=== PATIENT | female | born 1985 | race Caucasian/White ===

== ENCOUNTER 2017-04-11 09:53 | Day surgery (SDC) | payer BC ==
[2017-04-11] MEDS ORDERED: PROPOFOL INJ 200 MG/20 ML VIAL IV ONE (12:16)
[2017-04-11] MEDS ORDERED: MIDAZOLAM 2 MG/2 ML INJ ONE (12:16)
[2017-04-11] MEDS ORDERED: FENTANYL CITRATE INJ/PF 100 MCG/2 ML AMPUL IV PRN ×3 (12:51)
[2017-04-11] MEDS ORDERED: DIPHENHYDRAMINE HCL 50 MG/ML VIAL IV PRN (12:51)
[2017-04-11] MEDS ORDERED: MORPHINE SULFATE 10 MG/ML INJ IV PRN (12:51)
[2017-04-11 15:02] VITALS: BP 121/79
--- NOTE | 2017-04-11 16:39 | Operative Report ---
Operative Report DATE OF SURGERY: 04/11/17 Operative Report: The risks, benefits and alternatives of the procedure including risks of bleeding, perforation requiring surgery are explained to the patient in detail and informed consent was obtained. Patient was taken to the operating room and placed in the left, lateral decubital position. Timeout was called. Propofol medications administered. A rectal examination is done which did not reveal any masses, tears or fissures. An Olympus videoscope was inserted into the patient's rectum it is carefully advanced all the way to the cecum the cecum is identified by the usual anatomical landmarks including the ileocecal valve as well as the appendiceal office. Photodocumentation is obtained. The scope was then sequentially pulled back via the various segments of the colon including the ascending colon, hepatic flexure, transverse colon, splenic flexure, descending colon finding to the rectosigmoid portions of the colon. Retroflexion maneuvers performed. PREOPERATIVE DIAGNOSIS: Follow-up Crohn's disease POSTOPERATIVE DIAGNOSIS: Normal-appearing colon. Mild terminal ileitis status post biopsy. Internal hemorrhoids OPERATION: Colonoscopy with biopsy SURGEON: PRATIMA KING ANESTHESIA: LMAC TISSUE REMOVED OR ALTERED: As noted above. COMPLICATIONS: None. ESTIMATED BLOOD LOSS: None. INTRAOPERATIVE FINDINGS: As described above. PROCEDURE: Patient tolerated procedure well. No immediate postprocedure complications are noted. Patient discharged in good condition. Discharge date 04/11/2017. Discharge diet: Regular. Discharge activity: Regular. Patient is instructed to call the office or proceed to the emergency room should there be any further problems or questions. We will wait on pathology. 2-3 week follow-up to discuss findings. Continue current medications.
== END 2017-04-11 14:45 | disposition home or self-care (01) ==
LOC: OROUT 09:53
PROVIDERS: ATTEND Internal Medicine Gastroenterology
PROC: 0DBB8ZX Excision of Ileum, Via Natural or Artificial Opening Endoscopic, Diagnostic (ICD-10-PCS; principal; 2017-04-11 12:00)
DX: K52.9 Noninfective gastroenteritis and colitis, unspecified (principal); K62.89 Other specified diseases of anus and rectum; K50.10 Crohn's disease of large intestine without complications; I49.9 Cardiac arrhythmia, unspecified; Z88.8 Allergy status to other drugs, medicaments and biological substances; Z79.899 Other long term (current) drug therapy
CPT/HCPCS: 45380; J2704; 810; J2250

== ENCOUNTER 2018-01-18 14:59 | Emergency (ER) | payer BC ==
--- NOTE | 2018-01-18 15:09 | ER Document Report ---
ED Extremity Problem, Lower - General Chief Complaint: Toe Injury Stated Complaint: POSSIBLE TOE INJURY Time Seen by Provider: 01/18/18 15:09 Mode of Arrival: Wheelchair Information source: Patient Notes: Patient was in a furniture store with her looking at a furniture when the furniture slid down and hit on the left second toe this afternoon. The left second toe is deformed and painful. TRAVEL OUTSIDE OF THE [place] IN LAST 30 DAYS: No - HPI Patient complains to provider of: Pain Location: 2nd Toe Occurred: Just prior to arrival Where: Public place Onset/Duration: Sudden Quality of pain: Sharp Severity: Moderate Pain Level: 3 Context: Direct blow Associated symptoms: denies: Chest pain, Short of breath Exacerbated by: Movement Relieved by: Nothing - Related Data Allergies/Adverse Reactions: promethazine HCl [From Phenergan] Adverse Reaction (Severe, Verified 01/18/18 15 :01) Blurred vision Past Medical History - Social History Smoking Status: Unknown if Ever Smoked Family History: Reviewed & Not Pertinent - Past Medical History Cardiac Medical History: Denies: Hx Coronary Artery Disease, Hx Heart Attack, Hx Hypertension Pulmonary Medical History: Denies: Hx Asthma, Hx Bronchitis, Hx COPD, Hx Pneumonia Neurological Medical History: Denies: Hx Cerebrovascular Accident, Hx Seizures Musculoskeletal Medical History: Denies Hx Arthritis Skin Medical History: Reports Hx Psoriasis Past Surgical History: Reports: Hx Cholecystectomy, Hx Tonsillectomy. Denies: Hx Hysterectomy - Immunizations Immunizations up to date: Yes Hx Diphtheria, Pertussis, Tetanus Vaccination: Yes Hx Pneumococcal Vaccination: 05/13/09 Review of Systems - Review of Systems Constitutional: denies: Chills, Fever EENT: denies: Eye pain, Nose pain Cardiovascular: denies: Chest pain, Palpitations, Dizziness Respiratory: denies: Cough, Short of breath Gastrointestinal: denies: Abdominal pain, Diarrhea, Nausea, Vomiting Genitourinary: No symptoms reported Female Genitourinary: No symptoms reported Musculoskeletal: Other - Left second toe deformity with pain.. denies: Back pain, Muscle pain Skin: denies: No symptoms reported, Change in color, Change in hair/nails, Dryness Hematologic/Lymphatic: No symptoms reported Neurological/Psychological: No symptoms reported -: Yes All other systems reviewed and negative Physical Exam - Vital signs Vitals: Temp Pulse Resp BP Pulse Ox 98.9 F 113 H 22 H 136/91 H 99 01/18/18 15:05 01/18/18 15:05 01/18/18 15:05 01/18/18 15:05 01/18/18 15:05 - General General appearance: Appears well, Alert, Anxious In distress: Moderate - HEENT Head: Normocephalic, Atraumatic Eyes: Normal Pupils: PERRL - Respiratory Respiratory status: No respiratory distress Chest status: Nontender Breath sounds: Normal Chest palpation: Normal - Cardiovascular Rhythm: Regular Heart sounds: Normal auscultation Murmur: No - Abdominal Inspection: Normal Distension: No distension Bowel sounds: Normal Tenderness: Nontender Organomegaly: No organomegaly - Back Back: Normal, Nontender - Extremities General upper extremity: Normal inspection Shoulder: Normal Arm: Normal Elbow: Normal Forearm: Normal Wrist: Normal Hand: Normal Hip: Normal Thigh: Normal Knee: Normal Calf: Normal Ankle: Normal Foot: Tender, Deformity - Left second toe is deformed and angulated with tenderness to palpation. - Neurological Neuro grossly intact: Yes Cognition: Normal Orientation: AAOx4 Miguel[place] Coma Scale Eye Opening: Spontaneous [place] Coma Scale Verbal: Oriented [place] Coma Scale Motor: Obeys Commands Miguelina Coma Scale Total: 15 Speech: Normal Motor strength normal: LUE, RUE, LLE, RLE Sensory: Normal - Psychological Associated symptoms: Anxious - Skin Skin Temperature: Warm Skin Moisture: Dry Skin Color: Normal Course - Vital Signs Vital signs: Temp Pulse Resp BP Pulse Ox 98.9 F 81 18 119/82 98 01/18/18 15:05 01/18/18 17:18 01/18/18 17:18 01/18/18 17:18 01/18/18 17:18 - Transfer of Care Notes: 01/18/18 15:28 Left second toe dislocation. Procedures - Joint Reduction/Fracture Care Left Toe 2nd digit Time completed: 16:05 Consent obtained: Yes - Verbal Conscious sedation: No Pre-procedure NV exam: Yes Fracture: Other - No fracture Manipulation comment: Toe relocated in place after digital block with Lidocaine 1% without Epinep Post-procedure NV exam: Yes Reduction attempts: 1 Complications: No Discharge - Discharge Clinical Impression: Dislocation of second toe, left, closed Qualifiers: Encounter type: initial encounter Qualified Code(s): S93.105A - Unspecified dislocation of left toe(s), initial encounter Fracture dislocation of joint of toe of left foot Qualifiers: Encounter type: initial encounter Fracture type: closed Qualified Code(s): S92.912A - Unspecified fracture of left toe(s), initial encounter for closed fracture Condition: Stable Disposition: HOME, SELF-CARE Instructions: Dislocation ([facility]) Additional Instructions: Please follow up with the Orthopedic Surgeon Dr Igor Pineda on Saturday. Return to the ED if your condition worsens. Prescriptions: Ibuprofen [Motrin 800 mg Tablet] 800 mg PO Q8H PRN #20 tab PRN Reason: Pain Scale Of 4 Forms: Return to Work Referrals: EMBER MONSIVAIS MD [NO LOCAL MD] - Follow up as needed IGOR PINEDA MD [ACTIVE STAFF] - Follow up as needed
[2018-01-18] MEDS ORDERED: ONDANSETRON HCL INJ/PF 4 MG/2 ML SDV IV ONE (15:13)
[2018-01-18] MEDS ORDERED: MORPHINE SULFATE 10 MG/ML INJ IV ONE (15:13)
--- NOTE | 2018-01-18 15:57 | RADIOLOGY REPORT (SQ) ---
EXAM DESCRIPTION: FOOT LEFT COMPLETE COMPLETED DATE/TIME: 01/18/2018 3:47 pm REASON FOR STUDY: second toe injury COMPARISON: None. NUMBER OF VIEWS: Three views. TECHNIQUE: AP, lateral and oblique radiographic images acquired of the left foot. LIMITATIONS: None. FINDINGS: MINERALIZATION: Normal. BONES: Dislocation of the PIP joint of the 2nd toe with medial displacement. Associated tiny osseous densities probably representing tiny chip fractures. JOINTS: No effusions. SOFT TISSUES: No soft tissue swelling. No foreign body. OTHER: No other significant finding. IMPRESSION: DISLOCATION OF THE PIP JOINT OF THE 2ND TOE. PROBABLE TINY CHIP FRACTURES. TECHNICAL DOCUMENTATION: JOB ID: [id number] [employer]- All Rights Reserved Reading location - IP/workstation name: [email or web address]
[2018-01-18] MEDS ORDERED: LIDOCAINE 1% INJ (10 MG/ML) 10 ML MDV INJ ONE (15:58)
[2018-01-18 17:19] VITALS: BP 119/82
== END 2018-01-18 17:19 | disposition home or self-care (01) ==
LOC: ER 14:59
PROC: 0QSRXZZ Reposition Left Toe Phalanx, External Approach (ICD-10-PCS; principal; 2018-01-18)
DX: S93.105A Unspecified dislocation of left toe(s), initial encounter (principal); S92.912A Unspecified fracture of left toe(s), initial encounter for closed fracture; W22.03XA Walked into furniture, initial encounter; Y92.512 Supermarket, store or market as the place of occurrence of the external cause
CPT/HCPCS: 99283; 96374; 96375; 73630; 28515; J2270; J2405

== ENCOUNTER 2019-03-28 22:04 | Emergency (ER) | payer BC, OTHER ==
[2019-03-28 22:45] LABS: APPEARANCE,URINE CLOUDY; BILIRUBIN,URINE NEGATIVE (NEGATIVE); COLOR,URINE YELLOW; GLUCOSE, URINE NEGATIVE (NEGATIVE); KETONES,URINE NEGATIVE (NEGATIVE); LEUKOCYTE ESTERASE,URINE SMALL (NEGATIVE); NITRITE,URINE NEGATIVE (NEGATIVE); PROTEIN,URINE NEGATIVE (NEGATIVE)
[2019-03-28] MEDS ORDERED: ONDANSETRON HCL INJ/PF 4 MG/2 ML SDV IV ONE (23:17)
[2019-03-28 23:26] LABS: ABSOLUTE BASOPHILS # (AUTO) 0.1 10^3/uL (0.0-0.2); ABSOLUTE EOSINOPHILS # (AUTO) 0.2 10^3/uL (0.0-0.6); ABSOLUTE LYMPHOCYTES (AUTO) 3.7 10^3/uL (0.5-4.7); ABSOLUTE MONOCYTES (AUTO) 0.7 10^3/uL (0.1-1.4); ABSOLUTE NEUT (AUTO) 6.2 10^3/uL (1.7-8.2); BASOPHILS % (AUTO) 0.7 % (0-2); EOSINOPHILS % (AUTO) 1.7 % (0-6); HEMATOCRIT 43.7 % (36.0-47.0); HEMOGLOBIN 14.9 g/dL (12.0-15.5); LYMPHOCYTES % (AUTO) 33.9 % (13-45); MEAN CORPUSCULAR HEMOGLOBIN 31.2 pg (27.0-33.4); MEAN CORPUSCULAR HGB CONC 34.2 g/dL (32.0-36.0); MEAN CORPUSCULAR VOLUME 91 fl (80-97); MONOCYTES % (AUTO) 6.7 % (3-13); PLATELET COUNT 299 10^3/uL (150-450); RED BLOOD COUNT 4.78 10^6/uL (3.72-5.28); RED CELL DISTRIBUTION WIDTH 12.9 % (11.5-14.0); TOTAL CELLS COUNTED % (AUTO) 100 %; WHITE BLOOD COUNT 10.9 10^3/uL (4.0-10.5)
[2019-03-28] MEDS ORDERED: KETOROLAC TROMETHAMINE INJ/PF 30 MG/1 ML SDV IV ONE (23:39)
--- NOTE | 2019-03-29 00:13 | RADIOLOGY REPORT (SQ) ---
EXAM: CT abdomen and pelvis without intravenous contrast CLINICAL DATA: 33-year-old female with right-sided pain, hematuria and history of kidney stones TECHNICAL DATA: Axial CT imaging of the abdomen and pelvis was performed. Sagittal and coronal reconstructed images were then performed. The CT study is performed according to ALARA (as low as reasonably achievable) or ALARA/IMAGE GENTLY, with automatic adjustment of mA and/or kV according to patient size. Performed on: 03/28/2019 at 11:45 PM Comparison: None. FINDINGS: Lung bases: The lung bases are clear. Liver: The liver is enlarged and measures 21 cm in craniocaudal dimension. No focal hepatic abnormalities are appreciated on this unenhanced scan. Liver attenuation is within normal limits. Spleen:The spleen is normal is size, configuration and attenuation. No focal splenic abnormalities are appreciated on this unenhanced scan. Gallbladder and bile duct: The gallbladder is surgically absent. There is no biliary ductal dilatation. Pancreas: The pancreas is grossly normal in size and configuration. Adrenal Glands:The adrenal glands are normal in size and configuration. Kidneys:The kidneys are normal in size and configuration. There is no evidence of hydronephrosis. There is no evidence of nephrolithiasis. No focal renal abnormalities are identified. Stomach:The stomach is grossly normal. There is no definite hiatal hernia. Bowel:The bowel gas pattern is non specific and non obstructive. Appendix: The appendix is normal. Free air:There is no evidence of free air. Free fluid: There is no evidence of free fluid. Vasculature: The aorta is normal in caliber and contour. The inferior vena cava is grossly unremarkable. Lymphadenopathy: No pathologic lymphadenopathy is identified. Bladder: The bladder is well distended and smooth in contour. Reproductive: The uterus is retroflexed. Bones: No acute osseous abnormalities are identified. Soft tissues: No focal soft tissue abnormalities are identified. IMPRESSION: 1. Hepatomegaly. 2. Prior cholecystectomy. 3. No evidence of acute intra-abdominal or intrapelvic pathology. There is no evidence of urinary tract calcification or urinary tract obstruction.
[2019-03-29 00:40] LABS: ALBUMIN 4.4 g/dL (3.5-5.0); ALKALINE PHOSPHATASE 63 U/L (38-126); ANION GAP 11 (5-19); ASPARTATE AMINO TRANSFERASE 22 U/L (14-36); BILIRUBIN,DIRECT 0.2 mg/dL (0.0-0.4); BILIRUBIN,TOTAL 0.4 mg/dL (0.2-1.3); BLOOD UREA NITROGEN 15 mg/dL (7-20); CALCIUM 10.1 mg/dL (8.4-10.2); CARBON DIOXIDE 25 mmol/L (22-30); CHLORIDE 103 mmol/L (98-107); GLUCOSE 116 mg/dL (75-110); POTASSIUM 4.2 mmol/L (3.6-5.0); TOTAL PROTEIN 7.8 g/dL (6.3-8.2)
--- NOTE | 2019-03-29 01:34 | ER Document Report ---
ED GI/ - General Chief Complaint: Abdominal Pain Stated Complaint: ABDOMINAL PAIN,NAUSEA Time Seen by Provider: 03/28/19 22:59 Primary Care Provider: JENNIFER BARBER MD [Primary Care Provider] - Follow up as needed Notes: Patient is a 33-year-old female presents to the emergency department with dull right-sided abdominal pain. States it started around 9:00 last evening. States it started in her right back and then has moved to her right side. States the pain has started she does get nauseated. States she does have a history of kidney stones but is denying any dysuria or vaginal discharge. States she did undergo a colposcopy approximately 10 days ago. Denying any pelvic pain at this time. Patient has a history of a cholecystectomy. TRAVEL OUTSIDE OF THE [place] IN LAST 30 DAYS: No - Related Data Allergies/Adverse Reactions: promethazine HCl [From Phenergan] Adverse Reaction (Severe, Verified 01/18/18 15:01) Blurred vision Home Medications: 0.5 xanax Past Medical History - General Information source: Patient - Social History Smoking Status: Current Every Day Smoker Family History: Reviewed & Not Pertinent Patient has suicidal ideation: No Patient has homicidal ideation: No - Past Medical History Cardiac Medical History: Denies: Hx Coronary Artery Disease, Hx Heart Attack, Hx Hypertension Pulmonary Medical History: Denies: Hx Asthma, Hx Bronchitis, Hx COPD, Hx Pneumonia Neurological Medical History: Denies: Hx Cerebrovascular Accident, Hx Seizures Renal/ Medical History: Denies: Hx Peritoneal Dialysis Musculoskeletal Medical History: Denies Hx Arthritis Skin Medical History: Reports Hx Psoriasis Past Surgical History: Reports: Hx Cholecystectomy, Hx Tonsillectomy. Denies: Hx Hysterectomy - Immunizations Immunizations up to date: Yes Hx Diphtheria, Pertussis, Tetanus Vaccination: Yes Hx Pneumococcal Vaccination: 05/13/09 Review of Systems - Review of Systems Constitutional: denies: Fever EENT: No symptoms reported Cardiovascular: No symptoms reported Respiratory: No symptoms reported Gastrointestinal: See HPI Genitourinary: See HPI Female Genitourinary: See HPI Musculoskeletal: See HPI Skin: No symptoms reported Hematologic/Lymphatic: No symptoms reported Neurological/Psychological: No symptoms reported Physical Exam - Vital signs Vitals: Temp Pulse Resp BP Pulse Ox 98.2 F 102 H 18 144/92 H 98 03/28/19 22:07 03/28/19 22:07 03/28/19 22:07 03/28/19 22:07 03/28/19 22:07 - Notes Notes: GENERAL: Alert, interacts well. No acute distress. HEAD: Normocephalic, atraumatic. EYES: Pupils equal, round, and reactive to light. Extraocular movements intact. ENT: Oral mucosa moist, tongue midline. NECK: Full range of motion. Supple. Trachea midline. LUNGS: Clear to auscultation bilaterally, no wheezes, rales, or rhonchi. No respiratory distress. HEART: Regular rate and rhythm. No murmur ABDOMEN: Soft, right side right mid abdominal pain noted. No Mcpherson sign, no M cBurney's point tenderness. Non-distended. Bowel sounds present in all 4 quadrants. EXTREMITIES: Moves all 4 extremities spontaneously. No edema, normal radial and dorsalis pedis pulses bilaterally. No cyanosis. BACK: no cervical, thoracic, lumbar midline tenderness. No saddle anesthesia, normal distal neurovascular exam. No CVA tenderness noted bilaterally. NEUROLOGICAL: Alert and oriented x3. Normal speech. cranial nerves II through XII grossly intact PSYCH: Normal affect, normal mood. SKIN: Warm, dry, normal turgor. No rashes or lesions noted. Course - Re-evaluation Re-evalutation: Laboratory 03/28/19 03/28/19 03/28/19 22:20 22:20 23:10 WBC 10.9 H RBC 4.78 Hgb 14.9 Hct 43.7 MCV 91 MCH 31.2 MCHC 34.2 RDW 12.9 Plt Count 299 Lymph % (Auto) 33.9 [place] % (Auto) 6.7 Eos % (Auto) 1.7 Baso % (Auto) 0.7 Absolute Neuts (auto) 6.2 Absolute Lymphs (auto) 3.7 Absolute Monos (auto) 0.7 Absolute Eos (auto) 0.2 Absolute Basos (auto) 0.1 Seg Neutrophils % 57.0 Sodium Potassium Chloride Carbon Dioxide Anion Gap BUN Creatinine Est GFR ( Amer) Est GFR (MDRD) Non-Af Glucose Calcium Total Bilirubin Direct Bilirubin Neonat Total Bilirubin Neonat Direct Bilirubin Neonat Indirect Bili AST ALT Alkaline Phosphatase Total Protein Albumin Lipase Urine Color YELLOW Urine Appearance CLOUDY Urine pH 6.0 Ur Specific [place] 1.030 Urine Protein NEGATIVE Urine Glucose (UA) NEGATIVE Urine Ketones NEGATIVE Urine Blood SMALL H Urine Nitrite NEGATIVE Urine Bilirubin NEGATIVE Urine Urobilinogen 2.0 H Ur Leukocyte Esterase SMALL H Urine WBC (Auto) 4 Urine RBC (Auto) 52 Urine Bacteria (Auto) TRACE Squamous Epi Cells Auto 4 Urine Mucus (Auto) RARE Urine Ascorbic Acid NEGATIVE Urine HCG, Qual NEGATIVE 03/28/19 23:10 WBC RBC Hgb Hct MCV MCH MCHC RDW Plt Count Lymph % (Auto) [place] % (Auto) Eos % (Auto) Baso % (Auto) Absolute Neuts (auto) Absolute Lymphs (auto) Absolute Monos (auto) Absolute Eos (auto) Absolute Basos (auto) Seg Neutrophils % Sodium 139.2 Potassium 4.2 Chloride 103 Carbon Dioxide 25 Anion Gap 11 BUN 15 Creatinine 0.92 Est GFR ( Amer) > 60 Est GFR (MDRD) Non-Af > 60 Glucose 116 H Calcium 10.1 Total Bilirubin 0.4 Direct Bilirubin 0.2 Neonat Total Bilirubin Not Reportable Neonat Direct Bilirubin Not Reportable Neonat Indirect Bili Not Reportable AST 22 ALT 15 Alkaline Phosphatase 63 Total Protein 7.8 Albumin 4.4 Lipase 116.7 Urine Color Urine Appearance Urine pH Ur Specific [place] Urine Protein Urine Glucose (UA) Urine Ketones Urine Blood Urine Nitrite Urine Bilirubin Urine Urobilinogen Ur Leukocyte Esterase Urine WBC (Auto) Urine RBC (Auto) Urine Bacteria (Auto) Squamous Epi Cells Auto Urine Mucus (Auto) Urine Ascorbic Acid Urine HCG, Qual Abdomen/Pelvis CT 03/28/19 23:16 IMPRESSION: 1. Hepatomegaly. 2. Prior cholecystectomy. 3. No evidence of acute intra-abdominal or intrapelvic pathology. There is no evidence of urinary tract calcification or urinary tract obstruction. Patient initially presents to the emergency department with the right side and right mid abdominal pain. Her physical exam and urinalysis is consistent with potential kidney stone. I did proceed with CT imaging at this time. CT shows no abnormalities. Patient's lab work also shows no signs of abnormalities besides the hematuria. Discussed with patient this could be due to her recently passing a kidney stone, this could be due to her recent colposcopy. Also discussed her right-sided pain could be muscular in nature. Patient voices when she does move from side to side the pain does increase. Discussed follow-up with primary care provider with close return precautions. Patient stable for discharge. - Vital Signs Vital signs: Temp Pulse Resp BP Pulse Ox 98.2 F 70 18 129/77 H 96 03/29/19 01:45 03/29/19 01:45 03/29/19 01:45 03/29/19 01:45 03/29/19 01:45 - Laboratory Result Diagrams: 03/28/19 23:10 03/28/19 23:10 Laboratory results interpreted by me: 03/28/19 03/28/19 03/28/19 22:20 23:10 23:10 WBC 10.9 H Glucose 116 H Urine Blood SMALL H Urine Urobilinogen 2.0 H Ur Leukocyte Esterase SMALL H Discharge - Discharge Clinical Impression: Right sided abdominal pain Hematuria Qualifiers: Hematuria type: unspecified type Qualified Code(s): R31.9 - Hematuria, unspecified Condition: Stable Disposition: HOME, SELF-CARE Instructions: Abdominal Pain ([facility]) Additional Instructions: As we discussed you have been seen and treated in the emergency department for your right-sided abdominal pain. Your CT imaging shows no signs of abnormalities. Your blood work is also unremarkable. You do have blood in your urine which could be from a recent passing of a kidney stone, could also be from your recent colposcopy. No signs of infection noted on urinary analysis. Please make sure you follow-up with your primary care provider in the next 12 to 24 hours for continued evaluation. Return to the emergency department for any concerns. Referrals: JENNIFER BARBER MD [Primary Care Provider] - Follow up as needed
[2019-03-29] MEDS ORDERED: HYDROCODONE/ACETAMINOPHEN 5-325 MG (6 TAB/ER DISP) PO PRN (01:36)
[2019-03-29 01:45] VITALS: BP 129/77
== END 2019-03-29 01:57 | disposition home or self-care (01) ==
LOC: ER 22:04
DX: R10.9 Unspecified abdominal pain (principal); R31.9 Hematuria, unspecified; R11.0 Nausea; Z90.49 Acquired absence of other specified parts of digestive tract; F17.200 Nicotine dependence, unspecified, uncomplicated
CPT/HCPCS: 36415; 83690; 85025; 81025; 80053; 81001; 74176; J1885; J2405